=== PATIENT | male | born 1990 | race Caucasian/White ===

== ENCOUNTER 2019-03-02 12:11 | Inpatient (IN) | payer OTHER ==
[~2019-03-02] VITALS: Ht 167.6 cm; Wt 74.8 kg
--- NOTE | 2019-03-02 12:11 | NUR ---
Patient OCTAVIOMaranda ESTEFANIA, triaged by RN. Waiting for an available bed.
[2019-03-02 12:17] VITALS: BP 92/54
[2019-03-02] MEDS ORDERED: NACL 0.9% 1,000 ML IV ONE ×3 (12:22→15:40)
--- NOTE | 2019-03-02 12:22 | NUR ---
Patient transferred to bed 5. RN evaluating patient at bedside.
--- NOTE | 2019-03-02 12:45 | NUR ---
PT IS ARGUMENTATIVE AND CURSING AT NURSING STAFF. PT IS ABLE TO BE VERBALLY REDIRECTED, AND IS COOPERATING, BUT STILL AGGITATED.
--- NOTE | 2019-03-02 13:00 | NUR ---
PT IS SITTING UP AND EATING LUNCH IN BED, ALERT AND SPEAKING CLEAR SENTENCES. PT DOES NOT APPEAR AGGITATED AT THIS TIME.
--- NOTE | 2019-03-02 13:10 | NUR ---
PT UNABLE TO URINATE AT THIS TIME
--- NOTE | 2019-03-02 13:12 | NUR ---
behavioral health tech at bedside.
--- NOTE | 2019-03-02 13:17 | NUR ---
alcohol intoxication --found in motel room sitting in urine incontinence stated he wanted to kill himself to PD and attempted to smother himself with pillow desheveled appearance
[2019-03-02 13:18] LABS: BASOPHILS # (AUTO) 0.1 K/uL (0.00-0.22); BASOPHILS % (AUTO) 0.8 % (0.0-2.0); EOSINOPHILS # (AUTO) 0.3 K/uL (0-0.4); EOSINOPHILS % (AUTO) 4.4 % (0.0-4.0); HEMATOCRIT 30.3 % (36-52); HEMOGLOBIN 9.4 g/dL (12.0-18.0); LYMPHOCYTES # (AUTO) 2.1 K/uL (2.0-11.5); LYMPHOCYTES % (AUTO) 27.8 % (20.5-51.1); MEAN CORPUSCULAR HEMOGLOBIN 27 pg (27-31); MEAN CORPUSCULAR HGB CONC 31 g/dL (33-37); MEAN CORPUSCULAR VOLUME 86.7 fL (80-94); MONOCYTES # (AUTO) 0.5 K/uL (0.8-1.0); MONOCYTES % (AUTO) 7.3 % (1.7-9.3); NEUTROPHILS # (AUTO) 4.4 K/uL (1.8-7.7); NEUTROPHILS % (AUTO) 59.7 % (42.2-75.2); PLATELET COUNT (AUTO) 176 K/uL (140-450); RED CELL DISTRIBUTION WIDTH 23.5 % (11.6-13.7); WHITE BLOOD COUNT (AUTO) 7.5 K/uL (4.8-10.8)
[2019-03-02 13:30] LABS: ANION GAP 14.1 (8-16); ASPARTATE AMINOTRANSFERASE 197 U/L (15-37); CHLORIDE 104 mmol/L (98-107); GLUCOSE 87 mg/dL (74-106); POTASSIUM 4.1 mmol/L (3.5-5.1); SODIUM SERUM 139 mmol/L (136-145); TOTAL BILIRUBIN 1.5 mg/dL (0.0-1.0)
[2019-03-02 13:41] LABS: ACETAMINOPHEN < 0.5 ug/ml (10-30); SALICYLATE < 2.8 mg/dL (2.8-20.0)
[2019-03-02 13:48] LABS: ALBUMIN 2.6 g/dL (3.4-5.0)
[2019-03-02 13:56] LABS: CREATININE 0.6 mg/dL (0.7-1.3); GFR ARICAN-AMERICAN 206 mL/min (>90); UREA NITROGEN, BLOOD 1 mg/dL (7-18)
--- NOTE | 2019-03-02 15:12 | NUR ---
PT IS ASLEEP IN BED AT THIS TIME, AROUSABLE TO VERBAL STIMULI
--- NOTE | 2019-03-02 15:20 | NUR ---
URINE COLLECTED AND SENT TO LAB
[2019-03-02] MEDS ORDERED: THIAMINE 200 MG/2 ML VIAL IM ONE (15:40)
[2019-03-02 15:51] LABS: APPEARANCE,URINE CLEAR (CLEAR); BILIRUBIN,URINE NEGATIVE (NEGATIVE); BLOOD, URINE NEGATIVE (NEGATIVE); COLOR,URINE YELLOW (YELLOW); LEUKOCYTE ESTERASE ,URINE NEGATIVE (NEGATIVE); NITRITE, URINE NEGATIVE (NEGATIVE); PH,URINE 6.5 (5.0-9.0); UGLUCOSE NEGATIVE (NEGATIVE)
[2019-03-02] MEDS ORDERED: LORazepam 2 MG/ML VIAL IVP PRN (16:15)
[2019-03-02] MEDS ORDERED: HALOPERIDOL IM 5 MG/ML VIAL IM ONE (16:15)
[2019-03-02] MEDS ORDERED: ALBUTEROL 0.083% 2.5 MG/3 ML NEBU IH PRN (16:15)
[2019-03-02] MEDS ORDERED: diphenhydrAMINE 50 MG/ML VIAL IM ONE (16:15)
[2019-03-02] MEDS ORDERED: ZOLPIDEM 5 MG TAB PO PRN (16:15)
[2019-03-02] MEDS ORDERED: HYDROcodone/APAP 5/325 MG 1 TAB TAB PO PRN (16:15)
[2019-03-02] MEDS ORDERED: ACETAMINOPHEN 325 MG TAB PO PRN (16:15)
[2019-03-02] MEDS ORDERED: ONDANSETRON 4 MG/2 ML VIAL IVP PRN (16:15)
--- NOTE | 2019-03-02 16:15 | NUR ---
PT REPORTS FEELING ANXIOUS, STATES HE WANTS SOMETHING TO CALM HIM DOWN. INFORMED DR. WILLIAM AND HE WILL ORDER MEDICATION
[2019-03-02 16:51] LABS: ACETONE, SERUM NEGATIVE (NEGATIVE)
[2019-03-02 16:54] LABS: MAGNESIUM 1.4 mg/dL (1.8-2.4)
[2019-03-02 16:58] LABS: BARBITURATE, URINE NEG. ng/ml (NEG <=200); BENZODIAZEPINE, URINE POS. ng/mL (NEG <=200); CANNABINOID, URINE NEG. ng/mL (NEG <=50); COCAINE, URINE NEG. ng/mL (NEG <=300); OPIATE, URINE NEG. ng/mL (NEG <=2000); PHENCYCLIDINE SCREEN,URINE NEG. ng/mL (NEG <=25)
--- NOTE | 2019-03-02 17:20 | NUR ---
waiting for a sitter to be available for admission of pt to med surg floor.
--- NOTE | 2019-03-02 18:25 | NUR ---
PATIENT ARRIVED ON UNIT VIA GURNEY ACCOMPANIED BY ER NURSE JOANNE. PATIENT IS SLEEPING AT THIS TIME AND AROUSABLE BY VOICE. PATIENT IS AAOX1 TO NAME. PATIENT WAS NOT COOPERATIVE WHEN PERFORM NEURO ASSESSMENT AND SAID " I NEED THE SLEEP. STOP ASKING ME QUESTIONS." IV ON ON L HAND 22G, CLEAN AND INTACT, INFUSING PER MD ORDER. SKIN CLEAN AND INTACT. PATIENT IS CONTINENT. UNABLE TO ASSESS AMBULATORY DUE TO PATIENT'S CURRENT CONDITION. ORIENTED PATIENT TO ROOM, REINFORCEMENT NEEDED. VITAL SIGNS TAKE; TEMP 97.6, BP 91/60, PULSE 85, RR 18, SPO2 98%, FLACC 0. MRSA TAKEN. SAFETY MEASURES IN PLACE. BED IN LOW POSITION.
--- NOTE | 2019-03-02 18:25 | NUR ---
Patient will be admitted to care of DR. CONN. Admited to MED SURG. Will go to room 122B. Belongings list completed. Report to ITALIA HUA.
[2019-03-02] MEDS: LACTATED RINGERS 1,000 ML IV SCH (18:33)
--- NOTE | 2019-03-02 18:34 | NUR ---
STARTED IVF PER MD ORDER, PATIENT IS SLEEPING ON BED. EVEN AND UNLABORED CHEST RISES NOTED. AROUSABLE BY VOICE. SAFETY MEASURES IN PLACE. BED IN LOW POSITION.
--- NOTE | 2019-03-02 19:02 | NUR ---
ENDORSED PATIENT AT BEDSIDE TO WELL DRILL OPERATOR ROTARY DRILL NURSE FOR CONTINUITY OF CARE. PATIENT IS SLEEPING ON BED. EVEN AND UNLABORED CHEST RISES ON RA NOTED. PATIENT IS IN STABLE CONDITION. SAFETY MEASURES IN PLACE.
--- NOTE | 2019-03-02 19:03 | NUR ---
RECD. SLEEPING IN BED, EASILY AROUSABLE, NO RESPIRATORY DISTRESS NOTED.WILL ADMIT PATIENT.
[2019-03-02 19:30] VITALS: BP 91/60
--- NOTE | 2019-03-02 19:30 | NUR ---
Patient's Plan of Care was discussed and reviewed with PER DIEM CLERK: IHSAN SANDOVAL LVN.
--- NOTE | 2019-03-02 19:30 | NUR ---
Admitted from ER TO MED SURGICAL UNIT , with chief complaint of SUICIDAL IDEATION , 28 y/o ,Male, Anxious, AWAKE/A/OX4. IV OF LR AT 100 ML/HR INFUSING LEFT HAND G 22. EASILY GET UPSET WHEN QUESTIONS ASKED DURING ADMISSION, DEMANDING. STATED HE IS HOMELESS AND NO FINANCIAL SUPPORT. HEAD TO TOE ASSESSMENT WITH CHARGE NURSE, SKIN INTACT. BLOOD ALCOHOL LEVEL IS 383. NOTED PATIENT IS INCONTINENT AT THIS TIME. PLAN OF CARE FOR THE SHIFT DISCUSSED. SEEMS NOT INTERESTED. DENIES PAIN 0/10.oriented to call light, bed, phone,television, bathroom, smoking policy, visiting hours, procedures, ID bracelet on. Belongings list checked.
--- NOTE | 2019-03-02 20:30 | NUR ---
REFUSED BLOOD DRAW FOR LACTIC ACID.
--- NOTE | 2019-03-02 20:40 | NUR ---
PT STINKS, GOWN AND DIAPER WET WITH URINE. CLEANSED WITH HELP OF CONVEYOR MECHANIC AND CHANGED BEDDINGS. NOTED PATIENT IS WITH DIAPER BUT DID NOT ADMIT IF HE IS INCONTINENT WHEN ASKED. MADE COMFORTABLE IN BED WITH PILLOWS AND NEW BLANKETS. URINAL GIVEN.
--- NOTE | 2019-03-02 21:10 | NUR ---
PT CLAIMING HE HAS $7,000.00 DOLLARS WHEN HE WAS ADMITTED TO THE HOSPITAL. CHECKED WITH SECURITY BUT THE ONLY BELONGING HE HAS ARE SHOES AND [place] ID. CHECKED WITH ADMITTING PERSONNEL VAL IF PT. LEFT MONEY IN SAFEKEEPING BUT THERE IS NONE. INFORMED PT ABOUT THIS AND PT. GET UPSET. [employer] PEREZ AND ETHYLENE PLANT HELPER TIAN MADE AWARE.
--- NOTE | 2019-03-02 21:30 | NUR ---
NURSE VENEER GLUE SPREADER TIAN EXPLAINED TO PT. THAT IN THE RECORDS THERE IS NO MONEY RECORDED THAT HE BROUGHT TO THE HOSPITAL. PATIENT CAMERAS IN THE ROOM TO BE CHECKED. SECURITY JULIANNE AGREED TO CHECK.
[2019-03-02] MEDS: HYDROcodone/APAP 5/325 MG 1 TAB TAB PO PRN (23:36)
[2019-03-03] VITALS: BP 107/69
--- NOTE | 2019-03-03 00:15 | NUR ---
UNABLE TO SLEEP, MEDICATED WITH AMBIEN 5 MG. PO.
--- NOTE | 2019-03-03 01:15 | NUR ---
SLEEPING COMFORTABLY IN BED.
--- NOTE | 2019-03-03 02:00 | NUR ---
AWAKE IN BED, WORRIED ABOUT MONEY THAT HE PRESUMED WAS LEFT IN THE [facility] WHERE HE STAYED. ENCOURAGED TO GO BACK TO SLEEP AND SETTLE ISSUES IN THE MORNING.
[2019-03-03] MEDS: LACTATED RINGERS 1,000 ML IV SCH ×2 (02:15→04:54)
--- NOTE | 2019-03-03 03:00 | NUR ---
INFORMED DR. RAMIREZ, PT. MAGNESIUM LEVEL YESTERDAY 1.4, NO ORDER MADE. WILL REPEAT TEST IN THE AM.
--- NOTE | 2019-03-03 05:30 | NUR ---
ALLOWED BOX PRESS OPERATOR TO DRAW BLOOD FOR AM LABS. CONTINUE SLEEPING COMFORTABLY IN BED.
[2019-03-03 05:49] LABS: BASOPHILS % (AUTO) 0.6 % (0.0-2.0); EOSINOPHILS # (AUTO) 0.1 K/uL (0-0.4); EOSINOPHILS % (AUTO) 2.1 % (0.0-4.0); HEMATOCRIT 23.6 % (36-52); HEMOGLOBIN 7.6 g/dL (12.0-18.0); LYMPHOCYTES # (AUTO) 1.1 K/uL (2.0-11.5); LYMPHOCYTES % (AUTO) 20.8 % (20.5-51.1); MEAN CORPUSCULAR HEMOGLOBIN 27 pg (27-31); MEAN CORPUSCULAR HGB CONC 32 g/dL (33-37); MEAN CORPUSCULAR VOLUME 84.9 fL (80-94); MONOCYTES # (AUTO) 0.6 K/uL (0.8-1.0); MONOCYTES % (AUTO) 11.4 % (1.7-9.3); NEUTROPHILS # (AUTO) 3.5 K/uL (1.8-7.7); NEUTROPHILS % (AUTO) 65.1 % (42.2-75.2); PLATELET COUNT (AUTO) 129 K/uL (140-450); RED BLOOD CELL COUNT(AUTO) 2.78 MIL/uL (4.20-6.10); RED CELL DISTRIBUTION WIDTH 24.2 % (11.6-13.7); WHITE BLOOD COUNT (AUTO) 5.4 K/uL (4.8-10.8)
[2019-03-03 06:19] LABS: ALBUMIN 2.1 g/dL (3.4-5.0); ANION GAP 11.8 (8-16); CARBON DIOXIDE 23.7 mmol/L (21-32); CREATININE 0.5 mg/dL (0.7-1.3); MAGNESIUM 1.1 mg/dL (1.8-2.4); POTASSIUM 3.5 mmol/L (3.5-5.1); TOTAL BILIRUBIN 1.1 mg/dL (0.0-1.0)
--- NOTE | 2019-03-03 06:38 | NUR ---
STILL SLEEPING COMFORTABLY IN BED, CONDITION REMAIN STABLE. WILL ENDORSE TO AM NURSE FOR CONTINUITY OF CARE.
--- NOTE | 2019-03-03 06:53 | NUR ---
LACTIC ACID DECREASED FROM 3.3 TO 2.1., MAGNESIUM - 1.1 , JAD LOUIS MD.
--- NOTE | 2019-03-03 06:58 | NUR ---
DR. RAMIREZ ORDERED MG RIDER 2 GM IV. WILL ENDORSED TO AM NURSE FOR FOLLOW UP.
--- NOTE | 2019-03-03 07:23 | NUR ---
RECEIVED PT FROM MEDICAL LANGUAGE SPECIALIST NURSE AT [facility]. PATIENT IS SLEEPING AT THIS TIME BUT AROUSABLE BY VOICE. PATIENT IS AAOX4. SKIN INTACT. IV ON ON L HAND 22G, CLEAN AND INTACT, INFUSING PER MD ORDER. PATIENT IS CONTINENT. ORIENTED PATIENT TO ROOM AND SICUSSED POC. PT VERBALIZED UNDERSTANDING. DENIES PAIN OR DISCOMFORT AT THIS TIME. SAFETY MEASURES IN PLACE. BED IN LOW POSITION. CALL LIGHT WITHIN REACH. WILL MONITOR PT CLOSELY.
--- NOTE | 2019-03-03 07:25 | NUR ---
ENDORSED TO AM SHIFT NURSE FOR CONTINUITY OF CARE.
[2019-03-03] MEDS ORDERED: MAG SULF 2000 MG/WATER PREMIX 50 ML IV SCH ×2 (08:00→15:00)
[2019-03-03 08:15] VITALS: BP 105/70
--- NOTE | 2019-03-03 08:40 | NUR ---
PATIENT HAS BEEN SCREENED AND CATEGORIZED LOW NUTRITION RISK. PATIENT WILL BE SEEN WITHIN 7 DAYS OF ADMISSION. 03/09/[address]
--- NOTE | 2019-03-03 09:03 | NUR ---
PT RESTING IN BED. 1:1 SITTER AT BEDSIDE. ADMINISTERED MAG KAT FOR LOW MAG OF 1.1. PT TOLERATING MEDS WELL. ALSO GAVE PT ATIVAN AND NORCO. WILL CONTINUE TO ROUND FREQUENTLY ON PT.
[2019-03-03] MEDS: HYDROcodone/APAP 5/325 MG 1 TAB TAB PO PRN (09:04)
--- NOTE | 2019-03-03 11:32 | NUR ---
PT SLEEPING IN BED. SITTER AT BEDSIDE 1:1. WILL CONTINUE TO ROUND FREQUENTLY ON PT. BED IN LOW POSITION, CALL LIGHT WITHIN REACH.
--- NOTE | 2019-03-03 13:51 | NUR ---
PT SLEEPING IN BED. NO SINGS OF PAIN OR DISTRESS. WILL CONTINUE TO ROUND FREQUENTLY ON PT.
--- NOTE | 2019-03-03 15:47 | NUR ---
PT RESTING IN BED. WILL CONTINUE TO ROUND FREQUENTLY ON PT.
[2019-03-03 16:00] VITALS: BP 105/70
--- NOTE | 2019-03-03 17:52 | NUR ---
PT RESTING IN BED. NO SIGNS OF PAIN OR DISTRESS NOTED. WILL CONTINUE TO ROUND FREQUENTLY ON PT.
--- NOTE | 2019-03-03 19:42 | NUR ---
ENDORSED PT TO SHEEP KILLER FOR D/C. EXPLAINED OT PT THAT HE WILL BE GOING TO THE [facility] WHERE HE CAME FROM ONLY TO TOOL AND EQUIPMENT RENTAL CLERK BELONGINGS. ACCORDING TO [facility] PT CAN NOT STAY THERE DUE TO DAMAGING ROOM. PT AWARE AND STATES THAT HE WILL BE LOOKING FOR OTHER HOTEL TO STAY THE NIGHT. PT ENDORSED TO SHEEP KILLER IN STABLE CONDITION.
--- NOTE | 2019-03-03 19:43 | NUR ---
RECEIVED REPORT FROM AM SHIFT RN CORRY. PATIENT IS AWAITING TO BE DISCHARGED. PATIENT IS ALERT, AWAKE, ORIENTED X 4. EXPLAINED TO PATIENT THAT WE WILL PROVIDE TAXI VOUCHER TO THE [facility] HE WAS STAYING AT PRIOR TO ADMISSION, BUT PER [facility], HE COULD ONLY BOTTLE HOUSE PUMPER HIS BELONGINGS AND CAN'T STAY THERE ANYMORE. PATIENT VERBALIZED UNDERSTANDING, AND STATED THAT HE WILL LOOK FOR ANOTHER HOTEL TO STAY FOR THE NIGHT. PATIENT WAS TALKING TO GRANDMOTHER ON THE PHONE BEFORE DISCHARGE. PATIENT IS IN STABLE CONDITION UPON DISCHARGE.
== END 2019-03-03 19:45 | disposition home or self-care (01) | DRG 280 ==
LOC: MED 12:11 → MTU 16:18
PROVIDERS: ADMIT Internal Medicine Pulmonary Disease; ATTEND Internal Medicine Pulmonary Disease
DX: K70.10 Alcoholic hepatitis without ascites (principal); K83.1 Obstruction of bile duct; E44.0 Moderate protein-calorie malnutrition; E87.2 Acidosis; R45.851 Suicidal ideations; E83.42 Hypomagnesemia; F10.129 Alcohol abuse with intoxication, unspecified; Y90.8 Blood alcohol level of 240 mg/100 ml or more; E86.0 Dehydration; F32.9 Major depressive disorder, single episode, unspecified; D64.9 Anemia, unspecified
CPT/HCPCS: 36415; 71045; 80053; 80305; 81003; 82009; 83605; 83735; 84484; 85025; 87081; 93005; 96360; 96361; 96372; 99285; G0480; G0482; J1200; J1630; J2060; J3411; J3475; J7030; J7120